=== PATIENT | male | born 1990 | race Caucasian/White ===

== ENCOUNTER 2017-08-14 08:20 | Outpatient (CLI) | payer OTHER ==
--- NOTE | 2017-08-14 16:30 | MRI Report ---
EXAM: RIGHT KNEE MRI WITHOUT CONTRAST EXAM DATE: 08/14/2017 09:12 AM. CLINICAL HISTORY: Right knee pain. COMPARISON: None. TECHNIQUE: Multiplanar, multisequence T1-weighted and fluid-sensitive sequences of the knee without c ontrast. Other: None. FINDINGS: Bones and Articular Cartilage: Focal subchondral cysts, subchondral marrow edema, and full-thickness articular cartilage fissure at the inferior aspect of the medial patellar facet. No patellar subluxat ion. No acute fracture or bone lesions. There are also partial-thickness articular cartilage fissures at the median ridge of the patella. Medial Meniscus: The medial meniscus is intact. Lateral Meniscus: The lateral meniscus is intact. Cruciate Ligaments: The anterior and posterior cruciate ligaments are intact. Collateral Ligaments: The medial collateral and lateral collateral ligamentous structures are intact. Tendons: The quadriceps, patellar, semimembranosus, and popliteus tendons are unremarkable. Musculature: No edema or fatty atrophy. Other: No effusion. No popliteal cyst. No loose bodies. The medial and lateral retinacula are intact . The subcutaneous tissues and fat pads are unremarkable. IMPRESSION: 1. Chondromalacia patella. 2. No ligament or meniscal injury. [facility] MUSCULOSKE[facility] SECTION Referring Provider Line: [phone] SITE ID: [id number]
== END 2017-08-14 08:21 | disposition home or self-care (01) ==
LOC: DI 08:20
PROVIDERS: ATTEND General Practice
DX: M22.41 Chondromalacia patellae, right knee (principal)

== ENCOUNTER 2018-08-04 07:46 | Outpatient (CLI) | payer OTHER ==
--- NOTE | 2018-08-05 10:01 | MRI Report ---
Reason: RAIDULCULOPATHY,LUMBAR REGION Procedure Date: 08/04/2018 Accession Number: [id number] / [id number] Procedure: MRI - Lumbar Spine W/O CPT Code: FULL RESULT: EXAM: MRI LUMBAR SPINE WITHOUT CONTRAST EXAM DATE: 08/04/2018 08:35 AM. CLINICAL HISTORY: 28-year-old man with lumbar radiculopathy. COMPARISON: None. TECHNIQUE: Multiplanar, multisequence T1-weighted and fluid-sensitive sequences of the lumbar spine from T12 to S1 without contrast. Other: None. FINDINGS: Spinal Canal: The conus terminates at L1-L2. The conus medullaris and cauda equina are unremarkable. Alignment: Grade 1 retrolisthesis of L5 on S1 measures approximately 5 mm. No significant scoliosis. Bone Marrow: Five [id number]-[id number] lumbar vertebral bodies are present. No gross fractures or bone lesions. No bone marrow replacement. Disk Levels/Facets: T12-L1: Unremarkable. L1-L2: Unremarkable. L2-L3: Unremarkable. L3-L4: Unremarkable. L4-L5: Unremarkable. L5-S1: Unremarkable. Musculature: Normal. No edema or fatty atrophy. Other: The partially visualized retroperitoneum is unremarkable. IMPRESSION: 1. Grade 1 retrolisthesis of L5 on S1. 2. No significant central canal or neural foraminal narrowing. [facility]
== END 2018-08-04 07:47 | disposition home or self-care (01) ==
LOC: DI 07:46
PROVIDERS: ATTEND Family Medicine
DX: M43.17 Spondylolisthesis, lumbosacral region (principal)
CPT/HCPCS: 72148